=== PATIENT | male | born 1950 | race Caucasian/White ===

== ENCOUNTER → 2019-04-16 08:04 | Outpatient (CLI) | payer MEDICARE, OTHER, SELFPAY ==
--- NOTE | 2019-04-16 08:08 | ADU_ITS ---
Reason For Study: atherosclerosis Right Velocities Left Velocities Ext. Iliac Artery, dist = 132.6 cm./sec. Ext Iliac Artery, dist = 87.5 cm./sec. Common Femoral Artery, mid = 59.2 cm./sec. Common Femoral Artery, mid = 65.7 cm./sec. Supf Femoral Artery, prox = 63.6 cm./sec. Supf. Femoral Artery, prox = 20.0 cm./sec. Supf Femoral Artery, mid = 59.2 cm./sec. Profunda Femoral Artery = 110.7 cm./sec. Supf Femoral Artery, dist. = 279.0 cm./sec. SFA PROX appears acutely occluded (hypoechoic Profunda Femoral Artery = 53.7 cm./sec. within vessel), MID/Distal SFA appear chronic Popliteal Artery, prox. = 55.2 cm./sec. occlusion due to hetergenous appearance in vessel. Popliteal Artery, mid = 33.0 cm./sec. Popliteal Artery, proximal, = 17.2 cm./sec. Popliteal Artery, dist = 29.2 cm./sec. Popliteal Artery, mid = 31.4 cm./sec. Post. Tibial Artery, prox = 57.5 cm./sec. Popliteal Artery, distal = 20. cm./sec. Post. Tibial Artery, mid = 29.1 cm./sec. Post. Tibial Artery, prox = 37.0 cm./sec. Post. Tibial Artery, dist = 24.8 cm./sec. Post Tibial Artery, mid = 19.4 cm./sec. Peroneal Artery, prox = 33.4 cm./sec. Post Tibial Artery, dist. = 20.1 cm./sec. Peroneal Artery, mid = 31.9 cm./sec. Peroneal Artery, prox = 19.4 cm./sec. Peroneal Artery,dist = 31.9 cm./sec. Peroneal Artery, mid = 15.1 cm./sec. Ant. Tibial Artery, prox = 94.1 cm./sec. Peroneal Artery,dist. = 10.7 cm./sec. Ant. Tibial Artery, mid = 33.7 cm./sec. Ant.Tibial Artery, prox = 24.8 cm./sec. Ant. Tibial Artery, dist = 38.9 cm./sec. Ant Tibial Artery, mid = 17.7 cm./sec. Ant. Tibial Artery, distal = 21.8 cm./sec. Interpretation Summary 1. right leg with triphasic flow throughout and moderate distal SFA stenosis. 2. Lef SFA occluded and triphasic flow proximally and monophasic distally. Ordering Physician: Alex Napoles Referring Physician: Brandon Ceron Performed By: Toma Escalante, FERNY, RVT
--- NOTE | 2019-04-16 08:08 | AAVD_ITS ---
Reason For Study: atherosclerosis Aorta Measurements Aorta Doppler Measurements Proximal aorta measures1.44 x 1.58cm. in cross- Peak systolic flow velocities within the proximal sectional axis. aorta measure 50.2 cm/sec. Proximal aorta measures1.42cm. in longitudinal Peak systolic flow velocities within the mid aorta axis. measure 43.8 cm/sec. Mid aorta measures1.34 x 1.41cm. in cross- Peak systolic flow velocities within the distal sectional axis. aorta measure 47.4 cm/sec. Mid aorta measures1.39cm. in longitudinal axis. Distal aorta measures1.34 x 1.46cm. in cross- sectional axis. Distal aorta measures1.45cm. in longitudinal axis. Left Iliac Artery Unable to visualize LT Illiac Art. Right Iliac Artery Unable to visualize RT Illiac Art. Procedure Aorta IVC Iliac vasculature or bypass grafts [id number]. Technically difficult due to bowel gas. Exam performed in department. Interpretation Summary 1. no aortoiliac aneurysm or stenosis where visualized. Bilateral iliacs not sen on todays exam. Ordering Physician: Alex Napoles Referring Physician: Brandon Ceron Performed By: Toma Escalante, FERNY, RVT
== END ==
PROVIDERS: Family Provider Family Medicine; PCP Family Medicine; Referring Provider Surgery Vascular Surgery; Visit Provider Surgery Vascular Surgery
DX: I70.0 Atherosclerosis of aorta (principal); I77.1 Stricture of artery; I70.213 Atherosclerosis of native arteries of extremities with intermittent claudication, bilateral legs
CPT/HCPCS: 93922; 93925; 93978

== ENCOUNTER → 2020-12-24 13:32 | Outpatient (CLI) | payer MEDICARE, OTHER, SELFPAY ==
--- NOTE | 2020-12-24 13:34 | ART_ITS ---
Reason For Study: ATHEROLSCLEROSIS Procedure A bilateral lower extremity continuous wave Doppler with analog waveform analysis and ankle brachial indexes. Left Segmental Pressures Left brachial= 166mmHg. Left posterior tibial artery = 130mmHg. Left dorsalis pedis artery = 118mmHg. Left digit = 96 mmHg. The left posterior tibial artery waveforms are monophasic. The left dorsalis pedis waveforms are monophasic. Right Segmental Pressures Right brachial= 164mmHg. Right posterior tibial artery = 168mmHg. Right dorsalis pedis artery = 149mmHg. Right digit = 124 mmHg. The right posterior tibial artery waveforms are biphasic. The right dorsalis pedis waveforms are biphasic. Indices The right ankle brachial index by the posterior tibial artery is 1.01. The right ankle brachial index by the dorsalis pedis is 0.90. The right digital-brachial index is 0.75. The left ankle brachial index by the posterior tibial artery is 0.78. The left ankle brachial index by the dorsalis pedis is 0.71. The left digital-brachial index is 0.58. VL/Ankle Brachial Index Interpretation Summary Right leg with triphasic flow and an LANEY 1.01. Left leg with biphasic flow and an LANEY 0.78. Digit brachial index of 0.75 and 0.58. Ordering Physician: Alex Napoles Referring Physician: Alex Napoles Performed By: Toma Escalante RVT, RDCS
== END ==
PROVIDERS: PCP Family Medicine; Referring Provider Surgery Vascular Surgery; Visit Provider Surgery Vascular Surgery
DX: I74.09 Other arterial embolism and thrombosis of abdominal aorta (principal); I70.213 Atherosclerosis of native arteries of extremities with intermittent claudication, bilateral legs
CPT/HCPCS: 93922

== ENCOUNTER → 2022-04-20 | Outpatient (CLI) | payer MEDICARE, OTHER, SELFPAY ==
--- NOTE | 2022-04-20 12:24 | ART_ITS ---
Reason For Study: ATHEROSCLEROSIS Procedure A bilateral lower extremity continuous wave Doppler with analog waveform analysis and ankle brachial indexes. Left Segmental Pressures Left brachial= 157mmHg. Left posterior tibial artery = 109mmHg. Left dorsalis pedis artery = 100mmHg. Left digit = 93 mmHg. The left posterior tibial artery waveforms are monophasic. The left dorsalis pedis waveforms are monophasic. Right Segmental Pressures Right brachial= 156mmHg. Right posterior tibial artery = 132mmHg. Right dorsalis pedis artery = 135mmHg. Right digit = 126 mmHg. The right posterior tibial artery waveforms are monophasic. The right dorsalis pedis waveforms are monophasic. Indices The right ankle brachial index by the posterior tibial artery is 0.84. The right ankle brachial index by the dorsalis pedis is 0.86. The right digital-brachial index is 0.80. The left ankle brachial index by the posterior tibial artery is 0.69. The left ankle brachial index by the dorsalis pedis is 0.64. The left digital-brachial index is 0.59. 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 Left moderate at rest with LANEY 0.69 and biphashic flow. DBI 0.8 and 0.59. Ordering Physician: Alex Napoles Referring Physician: Brandon Ceron DO Performed By: Mohit Mcgovern RVT
== END | disposition home or self-care (01) ==
LOC: CVS 12:23
PROVIDERS: PCP Family Medicine; Referring Provider Surgery Vascular Surgery; Visit Provider Surgery Vascular Surgery
DX: I74.09 Other arterial embolism and thrombosis of abdominal aorta (principal); I70.213 Atherosclerosis of native arteries of extremities with intermittent claudication, bilateral legs
CPT/HCPCS: 93922